=== PATIENT | female | born 1990 | race Caucasian/White ===

== ENCOUNTER → 2020-04-20 | Outpatient (REF) | payer OTHER | LOC: M SFHCWAGY 13:13 | PROVIDERS: ATTEND Nurse Practitioner Women's Health | DX: Z12.4 Encounter for screening for malignant neoplasm of cervix (principal) ==

== ENCOUNTER → 2020-09-20 | Outpatient (REF) | payer OTHER ==
[2020-09-20 13:43] LABS: HEMATOCRIT 41.9 % (36.0-47.0); HEMOGLOBIN 13.5 g/dl (12.0-15.5); MEAN CORPUSCULAR HEMOGLOBIN 29.2 pg (27.0-33.0); MEAN CORPUSCULAR HGB CONC 32.2 g/dl (32.0-36.5); MEAN CORPUSCULAR VOLUME 90.7 fl (80.0-96.0); PLATELET COUNT, AUTOMATED 225 10^3/uL (150-450); RED BLOOD COUNT 4.62 10^6/uL (4.00-5.40); WHITE BLOOD COUNT 7.5 10^3/uL (4.0-10.0)
[2020-09-20 14:22] LABS: HEMOGLOBIN A1c 5.1 %
[2020-09-20 14:32] LABS: GLUCOSE CHALLENGE TEST 1 HOUR 105 MG/DL (LESS THAN 140)
[2020-09-20 15:27] LABS: HEPATITIS C VIRUS ABY INDEX < 0.0 INDEX (<0.8)
[2020-09-20 15:28] LABS: HIV 1&2 SCREEN CENTAUR NEGATIVE (NEGATIVE)
== END ==
LOC: M PLALAB 10:52
PROVIDERS: ATTEND Advanced Practice Midwife
DX: Z3A.09 9 weeks gestation of pregnancy (principal)

== ENCOUNTER → 2020-11-29 | Outpatient (CLI) | payer OTHER ==
--- NOTE | 2020-11-29 14:43 | REP ---
INDICATION: ANATOMY COMPARISON: None. TECHNIQUE: Transabdominal obstetrical ultrasound with color Doppler evaluation. FINDINGS: Examination demonstrates a single live intrauterine in variable presentation. motion is identified by technologist. Placenta is noted posterior/fundal and grade 1 without evidence for placenta previa or abruption. Amniotic fluid volume is normal. Cervix measures 3.1 cm in length and appears closed.. Gestational age by LMP 19 weeks 1 day with KIEL 04/24/2021. Gestational age by current measurements 19 weeks 3 days with KIEL 04/22/2021. FHR equals 155 beats per minute. Estimated weight 294 grams (65thpercentile). Anatomical assessment demonstrates normal structures including cranium, choroid plexus, cavum, cerebellum/posterior fossa, facial features, lungs, four-chamber heart/ventricular outflow tracts, diaphragm, stomach, cord insertion/three-vessel cord, kidneys/bladder, and extremities. IMPRESSION: Single live intrauterine in variable presentation demonstrating appropriate estimated weight. Limited evaluation of the spine noted. Remainder of the anatomical assessment is complete and normal. <Electronically signed by Ap Conde > 11/29/20 [id number]
== END ==
LOC: M WHC 09:05
PROVIDERS: ATTEND Advanced Practice Midwife
DX: Z36.89 Encounter for other specified antenatal screening (principal); Z3A.19 19 weeks gestation of pregnancy

== ENCOUNTER → 2021-01-11 | Outpatient (CLI) | payer OTHER ==
--- NOTE | 2021-01-11 12:58 | REP ---
INDICATION: PREG 25 WKS ANATOMY F/U SPINE. COMPARISON: 11/29/2020. TECHNIQUE: Real-time sonographic evaluation of the gravid uterus performed. FINDINGS: Estimated gestational age is25 weeks 2 days, EDC 04/24/2021. Today's measurements indicate appropriate growth. Presentation: Shane breech Placenta posterior, fundal, grade 1, without evidence of placenta previa. heart rate is recorded at 143 beats per minute. Amniotic fluid is subjectively normal. Closed cervical length is measured at 3.9 cm. Biometry chart: BPD: 65 mm, 26 weeks 2 days, 69th percentile. HC: 247 mm, 26 weeks 6 days, 83rd percentile AC: 217 mm, 26 weeks 1 days, 68th percentile Femur length: 48 mm, 26 weeks 1 days, 68th percentile HC to AC ratio: 1.14, normal range 1.01-1.20. Estimated weight: 907g, 62nd percentile. anatomy: Cranium: Grossly normal Lateral Ventricles/Choroid Plexus: Grossly normal Posterior Fossa/Cerebellum: Grossly normal Nose/lips/profile: Grossly normal Four chamber heart: Not well seen due to position, previously seen Right ventricular outflow tract: Grossly normal Left ventricular outflow tract: Not well seen due to position, previously seen Left-sided stomach: Grossly normal Kidneys: Grossly normal Bladder: Grossly normal Cord Insertion: Grossly normal 3 vessel cord: Grossly normal Spine: Lumbosacral spine not optimally visualized due to position. IMPRESSION: Viable single intrauterine gestation as above. Somewhat limited evaluation of anatomy as discussed above. <Electronically signed by Edward Park > 01/11/21 [id number]
== END ==
LOC: M RAD 11:36
PROVIDERS: ATTEND Obstetrics & Gynecology
DX: Z36.89 Encounter for other specified antenatal screening (principal); Z3A.25 25 weeks gestation of pregnancy

== ENCOUNTER → 2021-01-30 | Outpatient (CLI) | payer OTHER ==
[2021-01-30 13:50] LABS: HEMATOCRIT 38.8 % (36.0-47.0); HEMOGLOBIN 12.4 g/dl (12.0-15.5); MEAN CORPUSCULAR VOLUME 90.7 fl (80.0-96.0); PLATELET COUNT, AUTOMATED 207 10^3/uL (150-450); RED BLOOD COUNT 4.28 10^6/uL (4.00-5.40); WHITE BLOOD COUNT 11.4 10^3/uL (4.0-10.0)
== END ==
LOC: M PLALAB 10:06
PROVIDERS: ATTEND Advanced Practice Midwife
DX: Z34.92 Encounter for supervision of normal pregnancy, unspecified, second trimester (principal); Z3A.25 25 weeks gestation of pregnancy
CPT/HCPCS: 36415; 82950; 85027; 86850; 86900; 86901; 90471; 90715; G0463

== ENCOUNTER → 2021-02-06 | Outpatient (CLI) | payer OTHER | LOC: M LAB 08:03 | PROVIDERS: ATTEND Advanced Practice Midwife | DX: O99.810 Abnormal glucose complicating pregnancy (principal); Z3A.00 Weeks of gestation of pregnancy not specified ==

== ENCOUNTER → 2021-02-22 | Outpatient (CLI) | payer OTHER ==
--- NOTE | 2021-02-22 11:17 | REP ---
INDICATION: F/U ANATOMY KIEL 04/24/21. COMPARISON: 01/11/2021. TECHNIQUE: Real-time sonographic evaluation of the gravid uterus performed. FINDINGS: Estimated gestational age is31 weeks 2 days, EDC 04/24/2021. Today's measurements indicate appropriate growth. Presentation: Cephalic Placenta posterior, grade 1, without evidence of placenta previa. heart rate is recorded at 150 beats per minute. Amniotic fluid is subjectively normal. ODILON 18.3, normal range 8.7-23.9 Closed cervical length is measured at 4.0 cm. Biometry chart: BPD: 84 mm, 33 weeks 5 days, 86th percentile. HC: 298 mm, 33 weeks 0 days, 76th percentile AC: 283 mm, 32 weeks 3 days, 66th percentile Femur length: 62 mm, 32 weeks 0 days, 61st percentile HC to AC ratio: 1.05, normal range 0.96-1.15. Estimated weight: 1975g, 76th percentile. The spine is visualized on today's exam and is grossly unremarkable. IMPRESSION: Viable single intrauterine gestation as above. <Electronically signed by Edward Park > 02/22/21 [id number]
== END ==
LOC: M WHC 09:39
PROVIDERS: ATTEND Advanced Practice Midwife
DX: Z34.83 Encounter for supervision of other normal pregnancy, third trimester (principal); Z3A.31 31 weeks gestation of pregnancy

== ENCOUNTER → 2021-03-29 | Outpatient (REF) | payer OTHER | LOC: M SFHCWAGY 17:09 | PROVIDERS: ATTEND Advanced Practice Midwife | DX: Z34.03 Encounter for supervision of normal first pregnancy, third trimester (principal) ==

== ENCOUNTER 2021-04-29 11:57 | Inpatient (IN) | payer OTHER ==
[~2021-04-29] VITALS: Ht 167.6 cm; Wt 106.2 kg
[2021-04-29] VITALS (17 sets, daily range): BP systolic 113–156; BP diastolic 55–95
[2021-04-29] MEDS ORDERED: OXYTOCIN DRIP 30 UNITS in IV 1 EA IV PRN (12:10)
[2021-04-29] MEDS ORDERED: METHYLERGONOVINE MALEATE 0.2 MG/ML VIAL (J2210) IM PRN (12:10)
[2021-04-29] MEDS ORDERED: TRANEXAMIC ACID INJection 1,000 MG in NS 100 ML IV PRN (12:10)
[2021-04-29] MEDS ORDERED: LACTATED RINGER'S 1000 ML IV STA (12:10)
[2021-04-29] MEDS ORDERED: CARBOPROST TROMETHAMINE 250 MCG/ML AMP IM PRN (12:10)
[2021-04-29] MEDS ORDERED: LIDOCAINE 1% MDV 20ML VIAL INFIL PRN (12:10)
[2021-04-29] MEDS ORDERED: PRENTAB9 PO (12:19)
[2021-04-29] MEDS ORDERED: OMEP10CASR PO (12:20)
[2021-04-29] MEDS ORDERED: HOME MED LIST COMPLETE! XX SCH ×2 (12:25)
--- NOTE | 2021-04-29 12:28 | HPEPDOC ---
Obstetrical History & Physical General Date of Admission Apr 29, 2021 at 11:57 Primary Care Physician: RUTHIE BARKLEY CNM History of Present Illness [place] is a 30-year-old at 40 5/7 with KIEL of 04/24/21 which was confirmed by first trimester ultrasound. Her care was initiated at [facility] and her has been complicated by obesity, anxiety and now with oligohydramnios and nonreactive NST noted in the office today. Patient was sent from the office today for IOL. Pt reports +FM and pelvic pressure and she denies uterine co ntractions, vaginal bleeding, or LOF. Chief Complaint: Induction of labor (ODILON 3) Information Provided By: Patient Age: 30 : 1 Term: 0 Pre-term: 0 Abortions: 0 Livin Care Care: Good Care Dating Final EDC: Apr 24, 2021 Final EDC by: LMP, 1st trimester (US) 1st Trimester Date: Sep 20, 2020 EGA at Admission: 40.5 Antepartum Course Diagnos(e)s Oligohydramnios anxiety obesity Height (inches): 66 Pre- weight (lbs.): 205.8 Admission Weight (lbs.): 235 Change in Weight (lbs.): 29.2 Past Medical History Past Obstetrical History : Past Obstetrical History: Primgravida Past Medical History Medical History anxiety obesity Surgical History: Tonsilectomy Family History Significant Family History: Diabetes Social History Marital Status: Family situation: Spouse/partner home Psychosocial History: Anxiety * Smoker: non-smoker Alcohol: Denies Drugs: denies Abuse Violence Screening Have you been hit/kicked/slapp: No Have you been sexually assault: No Imunizations Tdap status: current Allergies Coded Allergies: No Known Allergies (Unverified , 04/29/21) Medications Scheduled Omeprazole (Omeprazole) 10 Mg Capsule.dr, 20 MG PO DAILY No.137/Iron/Folic Acd ( Vitamin Tablet) 1 Each Tablet, 1 TAB PO DAILY Physical Examination Physical Examination GENERAL: Alert and oriented times three. ABDOMEN: Gravid and non-tender to touch. FETUS: Is vertex (VTX) by sterile vaginal examination (SVE), fetus is vertex (VTX) by Aiden. RESPIRATORY: regular rate without use of accessory muscles. EXTREMITIES: Generalized edema. No clonus. Deep tendon reflexes (DTRs) +2. Laboratory Data 24H LABS Laboratory Tests 2 04/29/21 12:14: Serology Scanned Report Hepatitis B Testing Urine Culture: No Growth Pertinent Laboratoy Data Blood Type: A+ RBC Antibody Screen: Negative HIV: Negative Hepatitis B: Negative Hepatitis C: Negative Rapid Plasma Reagin: Nonreactive Rubella: Immune Varicella: Immune Chlamydia/Gonorrhea: Negative Group B Streptococcus: Negative Quad Screen Test: Declined Cystic Fibrosis: Declined Glucose Tolerance Test: 89 Anatomy Ultrasound Ultrasound Date: November 29, 2020 Placenta Location: Posterior Normal Anatomy: Yes Placenta Previa: No Estimated Weight (grams): 294 Steroid Therapy Steroid Therapy: No Vaginal Examination Dilation: Fingertip Effacement: 50% Station: -3 Cervical Consistency: Soft Cervical Position: Posterior Presentation: Cephalic presentation Assessment Heart Rate (FHR): 155 Variability: Moderate Accelerations: None Decelerations: None Tocometer Contractions: No Multi-drug resistant Organism: No history of MDRO Assessment/Plan Assessment IUP at 40.5 week gestation oligohydramnios Category I FHR tracing GBS negative Plan Admit to L & D. Dr. Capps sent patient from office and plan of care was collaborated. OOB ad walter Diet: regular. Group B Streptococcus (GBS) negative. Labs and intravenous (IV) per unit protocol. Counseled on Misoprostol, schaffer bulb, and IV Pitocin for induction of labor (IOL). Cytotec ordered. Anesthesia consult per patient's request. Lactated Ringers (LR): Bolus 800 mL prior to epidural, then at 125 mL/hr. Anticipate cervical ripening. RUTHIE BARKLEY CNM Apr 29, 2021 12:28
[2021-04-29] MEDS: miSOPROStol 50MCG 1/2 TABLET PO SCH ×3 (14:04→22:00)
[2021-04-29 14:17] LABS: HEMATOCRIT 36.7 % (36.0-47.0); HEMOGLOBIN 11.9 g/dl (12.0-15.5); MEAN CORPUSCULAR HEMOGLOBIN 27.5 pg (27.0-33.0); MEAN CORPUSCULAR HGB CONC 32.4 g/dl (32.0-36.5); MEAN CORPUSCULAR VOLUME 84.8 fl (80.0-96.0); PLATELET COUNT, AUTOMATED 248 10^3/uL (150-450); RED BLOOD COUNT 4.33 10^6/uL (4.00-5.40); WHITE BLOOD COUNT 11.4 10^3/uL (4.0-10.0)
--- NOTE | 2021-04-29 22:36 | IPNPDOC ---
Obstetrical Progress Note Date of Service Apr 29, 2021 Subjective Patient requesting an epidural for pain. Objective Vital Signs Date Time Temp Pulse Resp B/P (MAP) Pulse Ox O2 Delivery O2 Flow Rate FiO2 04/29/21 19:14 98.5 81 18 136/86 (103) Room Air Assessment Heart Rate (FHR): 140 Variability: Moderate Accelerations: Positive Decelerations: None Heart Rate Tracing: Category I Tocometer Contractions: Yes Frequency: regular Sterile Vaginal Examination Dilation: 4 cm Effacement (%): 80% Station: -1 Cervical Consistency: Soft Cervical Position: Anterior Postion/Presentation: Cephalic presentation Assessment and Plan Age: 30 : 1 Term: 0 Pre-term: 0 Abortions: 0 Livin EGA at Admission: 40.5 Status: Reassuring Group B Streptococcus: Negative Anticipate: Vaginal Delivery Additional Comments Anesthesia notified. RUTHIE BARKLEY CNM Apr 29, 2021 22:36
[2021-04-29] MEDS ORDERED: FENTANYL 2MCG/ML ROPIVACAINE 0.2% IN 0.9% NACL 100ML IVBAG As Ordered ONE (22:39)
[2021-04-29] MEDS ORDERED: REFRIGERATOR IV KEYS XX PRN (23:23)
[2021-04-29] MEDS ORDERED: LACTATED RINGER'S 1000 ML IV PRN (23:23)
[2021-04-29] MEDS ORDERED: EPIDURAL COMMENT XX SCH (23:23)
[2021-04-29] MEDS ORDERED: ePHEDrine SULFATE 25 MG/5 ML(5MG/ML) SYRINGE IV PRN (23:23)
[2021-04-29] MEDS ORDERED: NALOXONE INJ 0.4MG/1ML VIAL (J2310 PER 1MG) IV PRN (23:23)
[2021-04-29] MEDS ORDERED: ONDANSETRON 4MG/2ML VIAL IV PRN (23:23)
[2021-04-29] MEDS ORDERED: EPIDURAL/PCA KEYS XX PRN (23:23)
[2021-04-29] MEDS ORDERED: diphenhydrAMINE 50MG/ML VIAL (J1200) IV PRN (23:23)
[2021-04-29] MEDS: LR 1,000 ML IV SCH (23:40)
[2021-04-30] VITALS (28 sets, daily range): BP systolic 93–153; BP diastolic 51–91
[2021-04-30] MEDS ORDERED: UNRESOLVED CLARIFICATION ENTRY XX SCH (00:01)
[2021-04-30] MEDS: FENTANYL/ROPIVACAINE/NACL BAG 100 ML EPIDURAL SCH ×2 (00:15→07:34)
[2021-04-30] MEDS: CALCIUM CARBONATE 500 MG CHEW U/D PO PRN ×2 (00:27→09:38)
[2021-04-30] MEDS: miSOPROStol 50MCG 1/2 TABLET PO SCH (02:00)
[2021-04-30] MEDS: LR 1,000 ML IV SCH ×3 (02:13→20:14)
[2021-04-30] MEDS ORDERED: OXYTOCIN DRIP 30 UNITS in IV 1 EA IV SCH (11:00)
[2021-04-30] MEDS ORDERED: ceFAZolin 2 GM/D5W 50 ML IV BAG (J0690 PER 500MG) As Ordered ONE (12:38)
[2021-04-30] MEDS ORDERED: AZITHROMYCIN INJ 500MG VIAL (J0456 PER 500MG) As Ordered ONE (12:39)
[2021-04-30] MEDS ORDERED: BICITRA 30ML SOLN UDC As Ordered ONE (12:39)
--- NOTE | 2021-04-30 12:40 | IPNPDOC ---
Obstetrical Progress Note Date of Service Apr 30, 2021 Subjective Maternal exhaustion Objective Vital Signs Date Time Temp Pulse Resp B/P (MAP) Pulse Ox O2 Delivery O2 Flow Rate FiO2 04/30/21 07:06 110 119/66 (83) 04/30/21 02:05 98.6 18 Room Air 04/29/21 23:34 100 Assessment Heart Rate (FHR): 150 Variability: Moderate Accelerations: Positive Decelerations: Variable Heart Rate Tracing: Category II Tocometer Contractions: Yes Assessment and Plan Status: Reassuring Anticipate: Section Additional Comments Failure to descend despite >4hrs pushing with good maternal effort. station at +1 with caput at +2. Good decent with pushes but head moves back to +1 station between contractions. Discussed continued pushing vs. operative delivery. Decision made to proceed with jennifer/TRES Lindsay MD Apr 30, 2021 12:40
[2021-04-30] MEDS ORDERED: NALBUPHINE HCL 10 MG/ML AMP (J2300) IV PRN (13:01)
[2021-04-30] MEDS ORDERED: NALOXONE INJ 0.4MG/1ML VIAL (J2310 PER 1MG) IV PRN ×2 (13:01)
[2021-04-30] MEDS ORDERED: ONDANSETRON 4MG/2ML VIAL IV PRN ×3 (13:01→14:50)
[2021-04-30] MEDS ORDERED: diphenhydrAMINE 50MG/ML VIAL (J1200) IV PRN (13:01)
[2021-04-30] MEDS ORDERED: METOCLOPRAMIDE INJ 10MG/2ML VIAL (J2765 PER 1) IV PRN ×2 (13:01→14:50)
[2021-04-30] MEDS ORDERED: PHENYLephrine 500MCG 5ML (100MCG/ML) SYRINGE As Ordered ONE (13:21)
[2021-04-30] MEDS ORDERED: MORPHINE PRES-FREE INJ 10 MG/10 ML VIAL (J2274) As Ordered ONE (13:21)
[2021-04-30] MEDS ORDERED: KETOROLAC 60MG 2ML VIAL As Ordered ONE (13:21)
[2021-04-30] MEDS ORDERED: dexameTHASONE 4 MG/ML 1ML VIAL (J1100 PER 1MG) As Ordered ONE (13:21)
[2021-04-30] MEDS ORDERED: ONDANSETRON 4MG/2ML VIAL As Ordered ONE ×2 (13:21→14:03)
[2021-04-30] MEDS ORDERED: OXYTOCIN 30 UNITS IN 0.9% NaCl 500ML IV BAG (J2590) As Ordered ONE (13:21)
[2021-04-30] MEDS ORDERED: ePHEDrine SULFATE 25 MG/5 ML(5MG/ML) SYRINGE As Ordered ONE (13:21)
[2021-04-30] MEDS ORDERED: ACETAMINOPHEN 1000MG 100ML IV BTL (OFIRMEV) (J0131 PER 10MG) As Ordered ONE (13:30)
[2021-04-30] MEDS ORDERED: METOCLOPRAMIDE INJ 10MG/2ML VIAL (J2765 PER 1) As Ordered ONE (13:34)
[2021-04-30 13:42] LABS: CORD GAS ABE A -12.2; CORD GAS HCO3 A 16.8 MEQ/L; CORD GAS O2 SAT A 71.4 %; CORD GAS PCO2 A 49.5 mmHg; CORD GAS PH A 7.148 UNITS; CORD GAS PO2 A 38.5 mmHg; CORD GAS SBC A 14.6 MEQ/L; CORD GAS TCO2 A 18.3 MEQ/L
[2021-04-30 13:44] LABS: CORD GAS ABE V -8.2; CORD GAS HCO3 V 18.8 MEQ/L; CORD GAS O2 SAT V 30.7 %; CORD GAS PCO2 V 43.6 mmHg; CORD GAS PH V 7.252 UNITS; CORD GAS PO2 V 16.6 mmHg; CORD GAS SBC V 16.4 MEQ/L; CORD GAS TCO2 V 20.1 MEQ/L
[2021-04-30] MEDS ORDERED: OXYTOCIN INJ 10 UNITS/ML VIAL (J2590) As Ordered ONE ×2 (13:52→13:53)
[2021-04-30] MEDS ORDERED: fentaNYL 100 MCG/2 ML INJECTION (J3010) As Ordered ONE (14:01)
[2021-04-30] MEDS ORDERED: CARBOPROST TROMETHAMINE 250 MCG/ML AMP ONE (14:24)
[2021-04-30] MEDS ORDERED: METHYLERGONOVINE MALEATE 0.2 MG/ML VIAL (J2210) ONE (14:24)
[2021-04-30] MEDS ORDERED: RHOGAM 300 MCG (1500 IU) INJ (J2790) IM SCH (14:45)
[2021-04-30] MEDS ORDERED: MEASLES,MUMPS,RUBELLA VACCINE INJ (MMR-II) (90707) SC SCH (14:45)
[2021-04-30] MEDS ORDERED: DOCUSATE SODIUM 100MG CAPSULE PO PRN (14:45)
[2021-04-30] MEDS ORDERED: SIMETHICONE 80MG CHEW TAB PO PRN (14:45)
[2021-04-30] MEDS ORDERED: oxyCODONE 5MG TAB PO PRN (14:50)
[2021-04-30] MEDS ORDERED: fentaNYL 100 MCG/2 ML INJECTION (J3010) IV PRN (14:50)
[2021-04-30] MEDS ORDERED: LR 1,000 ML IV SCH (14:50)
--- NOTE | 2021-04-30 15:06 | ROOPDOC ---
[facility] Report Of Operation Report of Operation DATE OF PROCEDURE: 04/30/2021 PREPROCEDURE DIAGNOSES: Failure to descend POSTPROCEDURE DIAGNOSES: Same. PROCEDURE PERFORMED: Primary low transverse section. SURGEON: Tres Erickson MD SHOE PACKER: Dr. Bueno ANESTHESIA: Spinal ESTIMATED BLOOD LOSS: 750 IVF: 1800 cc of crystalloid UOP: 100 cc OPERATIVE START TIME: 1318 OPERATIVE END TIME: 1422 TIME OF DELIVERY: 1325 COMPLICATIONS: Uterine atony. INDICATION FOR PROCEDURE: Patient is a 30-year-old G 1, P 1 at 41 weeks and 0 days EGA who presented to labor and delivery for induction of labor due to a nonreactive NST and an ODILON of less than 5. Patient was given Cytotec x2 doses for cervical ripening. Patient started atif on her own and progressed to 10 cm dilated. The patient pushed for 4 hours with excellent maternal effort however there was arrest of descent at +1 station. Decision was made to proceed with a delivery FINDINGS: Single liveborn male weighing 3920 g with Apgars of 7 and 9 at 1 and 5 minutes respectively. The was in the vertex position, however, upon elevating the head out of the pelvis the infant rotated to breech presentation and was delivered through the hysterotomy breech. SPECIMENS REMOVED: placenta PROCEDURE NOTE: The patient was brought to the operating suite in stable condition for primary low transverse section with spinal on board and an indwelling catheter in place in the bladder. The patient was placed supine on the operating room table and rolled to her left side with a wedge. The abdomen was prepped and draped in standard fashion for section. After testing with faina clamp to assure an adequate anesthetic level, the surgery was c ommenced. With the scalpel, a Pfannenstiel skin incision was made. Dissection was carried down sharply through the subcutaneous tissues to the underlying fascia. The fascia was knicked on either side of the midline and extended laterally using pick ups and curved Cook scissors. The inferior aspect of the fascial incision was grasped with kolker clamps and elevated off the underlying rectus muscle with a scalpel. This process was then repeated with the lower aspect of the fascial incision. The peritoneum was identified and entered bluntly and was bluntly stretched laterally and cephalad. The vesicouterine junction was identified and a bladder flap was created by incising transversely through the peritoneum and vesicouterine fold and then bluntly dissecting the bladder distally. A mobius retractor was placed intra-abdominally. With the scalpel, a low transverse hysterotomy was commenced. The serosa and myometrium were scored with the scalpel. The uterine incision was then extended laterally with the operators fingers. An intrauterine hand was placed and the head of the infant was brought up out of the pelvis into the uterine incision. With fundal pressure, the infant rotated to a back down presentation and therefore the was manually rotated to a b reech presentation. The infant's legs were delivered and the infant was rotated to a prone position. The left arm was delivered followed by the right. The infants head was flexed and was delivered without difficulty. The cord was doubly clamped and transected. The infant was then handed off to the nursery personnel and cord gasses were collected. The placenta was manually removed. The uterine cavity was then curetted with a dry sponge and freed of the remaining membranes. The uterus was then exterior ized. The edges of the uterine incision were grasped with faina clamps. The hysterotomy was noted to be just above the cervix with bilateral caudal extensions. The uterine incision was then closed in 2 layers of 0 Vicryl sutures. The uterus continued to be boggy through the repair and the patient was given methergine and hemabate IM. The pelvis and gutters were irrigated and suctioned and cleared of all blood and clots and amniotic fluid. The uterine incision was reinspected to assure hemostasis. Karlie was applied to the hysterotomy. The uterus, tubes and ovaries were inspected and were normal. Once we were satisfied with the hemostasis, attention was turned to closure of the abdominal incision. The fascia was closed in layers using 0-Vicryl sutures. The subcutaneous tissue was closed with 3-0 vicryl suture. The skin was closed with a subcuticular suture of 4-0 monocryl followed by, Steri-Strips and a optifoam dressing. Cytotec 1000mcg per rectum was administered. The patient was moved to the recovery room in stable condition with the Weinstein catheter draining clear urine. Instruments, sponge and needle counts were reported as correct. TRES ERICKSON MD Apr 30, 2021 15:06
[2021-04-30] MEDS ORDERED: IBUPROFEN 600MG TAB PO SCH (16:00)
[2021-04-30] MEDS: KETOROLAC 30 MG/ML 1ML VIAL IV SCH (19:58)
[2021-04-30] MEDS: ACETAMINOPHEN 500 MG TAB PO SCH (20:00)
[2021-05-01] MEDS: KETOROLAC 30 MG/ML 1ML VIAL IV SCH ×2 (02:00→08:00)
[2021-05-01] MEDS: ACETAMINOPHEN 500 MG TAB PO SCH ×4 (02:00→19:42)
[2021-05-01 02:29] VITALS: BP 105/54
[2021-05-01 06:28] VITALS: BP 113/52
[2021-05-01] MEDS: LR 1,000 ML IV SCH (07:40)
[2021-05-01] MEDS: PRENATAL VITAMINS CHEWABLE TABLET PO SCH (08:47)
[2021-05-01 09:05] LABS: HEMATOCRIT 27.2 % (36.0-47.0); MEAN CORPUSCULAR HEMOGLOBIN 28.1 pg (27.0-33.0); MEAN CORPUSCULAR HGB CONC 32.7 g/dl (32.0-36.5); MEAN CORPUSCULAR VOLUME 85.8 fl (80.0-96.0); PLATELET COUNT, AUTOMATED 197 10^3/uL (150-450); RED BLOOD COUNT 3.17 10^6/uL (4.00-5.40)
[2021-05-01 09:06] LABS: HEMOGLOBIN 8.9 g/dl (12.0-15.5)
[2021-05-01 10:00] VITALS: BP 115/64
[2021-05-01 14:00] VITALS: BP 112/55
[2021-05-01] MEDS: IBUPROFEN 600MG TAB PO SCH ×2 (16:00→22:00)
[2021-05-01 18:00] VITALS: BP 113/64
[2021-05-01] MEDS: oxyCODONE 5MG TAB PO PRN (19:43)
[2021-05-01 22:00] VITALS: BP 119/56
[2021-05-02 02:00] VITALS: BP 111/58
[2021-05-02] MEDS: ACETAMINOPHEN 500 MG TAB PO SCH ×2 (02:32→08:21)
[2021-05-02] MEDS: IBUPROFEN 600MG TAB PO SCH ×2 (04:12→10:00)
[2021-05-02 06:00] VITALS: BP 125/67
[2021-05-02] MEDS ORDERED: INFLUENZA QUADRIVALENT PF VACCINE 0.5ML SYRINGE IM ONE (09:00)
[2021-05-02 09:58] VITALS: BP 116/65
[2021-05-02] MEDS: CALCIUM CARBONATE 500 MG CHEW U/D PO PRN (09:58)
[2021-05-02] MEDS: PRENATAL VITAMINS CHEWABLE TABLET PO SCH (09:58)
[2021-05-02] MEDS: oxyCODONE 5MG TAB PO PRN (10:01)
--- NOTE | 2021-05-02 10:43 | DS.PDOC ---
Discharge Summary General Date of Admission Apr 29, 2021 at 11:57 Date of Discharge 05/02/21 Attending Physician: TRES ERICKSON MD Discharge Summary PROCEDURES PERFORMED DURING STAY: Primary section 2. Spinal anesthesia. ADMITTING DIAGNOSES: 1. Failure to descend 2. Oligohydramnios. DISCHARGE DIAGNOSES: 1. Failure to descend 2. Oligohydramnios. COMPLICATIONS/CHIEF COMPLAINT: Oligohydramnios. HISTORY OF PRESENT ILLNESS: Patient is a 30-year-old G 1, P 1 at 41 weeks and 0 days EGA who presented to labor and delivery for induction of labor due to a nonreactive NST and an ODILON of less than 5. Patient was given Cytotec x2 doses for cervical ripening. Patient started atif on her own and progressed to 10 cm dilated. The patient pushed for 4 hours with excellent maternal effort however there was arrest of descent at +1 station. Decision was made to proceed with a delivery patient underwent uncomplicated section productive of a liveborn male infant Apgars 7 and 9 weight was 3920 g. Estimated blood loss 750 mL. patient did well postoperatively by postoperative day #2 had met all discharge criteria is as discharged home in stable condition DISCHARGE MEDICATIONS: Please see below. ALLERGIES: Please see below. PHYSICAL EXAMINATION ON DISCHARGE: VITAL SIGNS: Please see below. GENERAL: No distress HEENT: WNL ABDOMINAL EXAMINATION: Fundus firm. Dressing intact EXTREMITIES: Equal strength and motion SKIN: Intact NEUROLOGICAL EXAMINATION: Grossly intact PSYCHIATRIC EXAMINATION: Appropriate LABORATORY DATA: Please see below. PROGNOSIS: Good ACTIVITY: As tolerated. Pelvic rest. DIET: As tolerated DISCHARGE PLAN: Discharge today. Remove dressing day 5 DISPOSITION: Home DISCHARGE INSTRUCTIONS: 1. Pelvic rest. Continue vitamins. Medications as ordered. Call with fever, nausea, vomiting, chills, foul lochia, wound exudate or evidence infection. 2- week incision check appointment DISCHARGE CONDITION: Stable Vital Signs/I&Os Vital Signs Date Time Temp Pulse Resp B/P (MAP) Pulse Ox O2 Delivery O2 Flow Rate FiO2 05/02/21 10:01 18 05/02/21 09:58 98.3 93 116/65 (82) 97 Room Air Discharge Medications Scheduled Omeprazole (Omeprazole) 10 Mg Capsule.dr, 20 MG PO DAILY, (Reported) No.137/Iron/Folic Acd ( Vitamin Tablet) 1 Each Tablet, 1 TAB PO DAILY, (Reported) Allergies Coded Allergies: No Known Allergies (Unverified , 04/29/21) TRISTIN SOUSA MD. May 02, 2021 10:43
== END 2021-05-02 12:35 | disposition home or self-care (01) | DRG 773 ==
LOC: M LDI 11:57 → M OBS 04-30 16:22
PROVIDERS: ADMIT Advanced Practice Midwife; ATTEND Obstetrics & Gynecology
PROC: 3E0P7GC Introduction of Other Therapeutic Substance into Female Reproductive, Via Natural or Artificial Opening (ICD-10-PCS; 2021-04-29)
PROC: 10D00Z1 Extraction of Products of Conception, Low, Open Approach (ICD-10-PCS; principal; 2021-04-30 12:58)
DX: O41.03X0 Oligohydramnios, third trimester, not applicable or unspecified (principal); Z3A.40 40 weeks gestation of pregnancy; O48.0 Post-term pregnancy; O99.214 Obesity complicating childbirth; E66.9 Obesity, unspecified; O99.344 Other mental disorders complicating childbirth; F41.9 Anxiety disorder, unspecified; O75.81 Maternal exhaustion complicating labor and delivery; O64.0XX0 Obstructed labor due to incomplete rotation of fetal head, not applicable or unspecified; O75.89 Other specified complications of labor and delivery; Z37.0 Single live birth